=== PATIENT | female | born 1955 | race Caucasian/White ===

== ENCOUNTER 2021-02-07 08:18 | Day surgery (SDC) | payer MEDICARE ==
[~2021-02-07 08:18] MED LIST: Lactated Ringers 1,000 ML IV SCH; Lidocaine 1%/Sod Bicarbonate in NS 8.4% 1 ML Syringe IDERM PRN; Sodium Chloride 0.9% 10 ML Syringe FLUSH PRN
[2021-02-07] MEDS ORDERED: fentaNYL 100 MCG/2 ML SDV ONE (08:38)
[2021-02-07] MEDS ORDERED: Midazolam 1 MG/ML 2 ML SDV ONE (08:38)
[2021-02-07] MEDS ORDERED: Lactated Ringers 0 ML ONE (08:38)
[2021-02-07] MEDS ORDERED: ceFAZolin 1 GM Vial ONE (08:38)
[2021-02-07] MEDS ORDERED: Propofol 200 MG/20 ML SDV ONE ×2 (08:39→11:12)
[2021-02-07] MEDS ORDERED: oxyCODONE 5 MG Tab PO PRN (09:25)
--- NOTE | 2021-02-07 10:02 | PCM.PREANE ---
Preanesthetic Assessment - Anesthesia/Transfusion/Family Hx Anesthesia History: Prior Anesthesia Without Reaction Type of Anesthesia Reaction: Urinary Retention Family History of Anesthesia Reaction: No - Review of Systems General: Other (crd stage 3, creat 1.45, CAHUILLA) Pulmonary: Cough, Other (MARCELLUS, with bipap) Cardiovascular: Other (HTN) Gastrointestinal: Other (gerd on meds, had esophagus stretched in last couple of months and patient states so much better, hiatal hernia) Neurological: Other (hx of stroke 2 years ago, no major residual effects) Other: Reports: Easy Bleeding (on blood thinner), Diabetes, Depression, Anxiety - Physical Assessment NPO Status Date: 02/06/21 NPO Status Time: 20:00 Weight: 107.5 kg ASA Class: 3 Mental Status: Alert & Oriented x3 Dentition: Reports: Edentulous Thyro-Mental Finger Breadths: 3 Mouth Opening Finger Breadths: 3 ROM/Head Extension: Full Lungs: Clear to Auscultation, Normal Respiratory Effort Cardiovascular: Regular Rate, Regular Rhythm - Imaging/EKG Impressions: EKG shows nsr with 1 av block december 2020, stress test negaive for ischemia - Allergies Allergies/Adverse Reactions: Allergies Allergy/AdvReac Type Severity Reaction Status Date / Time acetaminophen [From Tylenol] Allergy abdominal Verified 02/06/21 16:02 pain, vomiting, upset stomach aspirin Allergy abdominal Verified 02/06/21 16:02 pain, vomiting atropine Allergy Hives Verified 02/06/21 16:02 black cohosh Allergy Dizziness Verified 02/06/21 16:02 codeine Allergy Hives Verified 02/06/21 16:02 Sulfa (Sulfonamide Allergy Hives Verified 02/06/21 16:02 Antibiotics) - Blood Blood Available: No Product(s) Available: None - Anesthesia Plan Beta Angie: Atenolol Med Last Dose Date: 02/06/21 Med Last Dose Time: 20:00 - Acknowledgements Anesthesia Type Planned: General Anesthesia Pt an Appropriate Candidate for the Planned Anesthesia: Yes Alternatives and Risks of Anesthesia Discussed w Pt/Guardian: Yes Pt/Guardian Understands and Agrees with Anesthesia Plan: Yes PreAnesthesia Questionnaire HEENT History: Reports: Other (See Below) Other HEENT History: hearing loss, bilateral ceruminosis, has hearing aids, wears glasses Cardiovascular History: Reports: CAD, High Cholesterol Respiratory History: Reports: Sleep Apnea Gastrointestinal History: Reports: Other (See Below) Other Gastrointestinal History: esophageal dysmotility Genitourinary History: Reports: Other (See Below) Other Genitourinary History: urinary retention, CKD III [employer] History: Reports: Other (See Below) Other OB/BYN History: post menopausal Musculoskeletal History: Reports: Other (See Below) Other Musculoskeletal History: pes anserine bursitis, bilateral carpal tunnel syndrome, right knee pain Neurological History: Reports: CVA, Neuropathy, Peripheral, TIA, Other (See Below) Other Neuro History: left sided weakness Psychiatric History: Reports: Anxiety, Depression Endocrine/Metabolic History: Reports: Diabetes, Type II, Obesity/BMI 30+ Hematologic History: Reports: None Immunologic History: Reports: None Oncologic (Cancer) History: Reports: None Dermatologic History: Reports: None - Past Surgical History Head Surgeries/Procedures: Reports: None HEENT Surgical History: Reports: Other (See Below) Other HEENT Surgeries/Procedures: ear surgeries Cardiovascular Surgical History: Reports: None Respiratory Surgical History: Reports: None GI Surgical History: Reports: Cholecystectomy, EGD Female Surgical History: Reports: Hysterectomy, Other (See Below) Other Female Surgeries/Procedures: bladder surgery Endocrine Surgical History: Reports: None Neurological Surgical History: Reports: Lumbar Spine Musculoskeletal Surgical History: Reports: Carpal Tunnel, Other (See Below) Other Musculoskeletal Surgeries/Procedures:: pelvic surgeries, bilateral knee arthroscopies Oncologic Surgical History: Reports: None Dermatological Surgical History: Reports: None - SUBSTANCE USE Tobacco Use Status *Q: Never Tobacco User Recreational Drug Use History: No - HOME MEDS Home Medications: Home Meds Calcium Carb/Vitamin D3/Vit K1 [Calcium + D Soft Chewable Tab] 1 tab PO DAILY 01/25/21 [History] Dulaglutide [Trulicity] 1.5 mg SQ TU 01/25/21 [History] Furosemide [Lasix] 20 mg PO DAILY 01/25/21 [History] Losartan [Cozaar] 50 mg PO DAILY 01/25/21 [History] Multivitamin 1 tab PO DAILY 01/25/21 [History] Pantoprazole Sodium [Protonix] 40 mg PO DAILY 01/25/21 [History] Sertraline [Zoloft] 25 mg PO DAILY 01/25/21 [History] Zolpidem [Ambien] 5 - 10 mg PO BEDTIME PRN 01/25/21 [History] atenoloL [Atenolol] 50 mg PO BEDTIME 01/25/21 [History] metFORMIN HCl [Metformin HCl] 500 mg PO BID 01/25/21 [History] oxyCODONE 5 - 10 mg PO Q4H PRN #30 tab 02/06/21 [Rx] - CURRENT (IN HOUSE) MEDS Current Meds: Current Medications Morphine Sulfate 8 mg/Epinephrine HCl 0.3 mg/Cefuroxime Sodium 750 mg/Ketorolac Tromethamine 30 mg/Sodium Chloride 7.9 ml 0 mg .XX ASDIRECTED PRN PRN Reason: Pain Stop: 02/07/21 16:00 Lactated Ringer's (Ringers, Lactated) 1,000 mls @ 125 mls/hr IV ASDIRECTED SOPHIA Stop: 02/07/21 23:00 Lidocaine/Sodium Bicarbonate (Lidocaine 1%/Sod Bicarbonate In Ns 8.4% 1 Ml Syringe) 0.25 ml IDERM ONETIME PRN PRN Reason: Prior to IV Start Stop: 02/07/21 18:00 Oxycodone HCl (Oxycodone 5 Mg Tab) 10 mg PO ONETIME PRN PRN Reason: Pain Stop: 02/07/21 16:00 Sodium Chloride (Sodium Chloride 0.9% 10 Ml Syringe) 10 ml FLUSH ASDIRECTED PRN PRN Reason: Keep Vein Open Stop: 02/07/21 18:00 Discontinued Medications Cefazolin Sodium (Cefazolin 1 Gm Vial) Confirm Administered Dose 2 gm .ROUTE .STK-MED ONE Stop: 02/07/21 08:39 Fentanyl (Fentanyl 100 Mcg/2 Ml Sdv) Confirm Administered Dose 100 mcg .ROUTE .STK-MED ONE Stop: 02/07/21 08:39 Lactated Ringer's (Ringers, Lactated) Confirm Administered Dose 1,000 mls @ as directed .ROUTE .STK-MED ONE Stop: 02/07/21 08:39 Midazolam HCl (Midazolam 1 Mg/Ml 2 Ml Sdv) Confirm Administered Dose 2 mg .ROUTE .STK-MED ONE Stop: 02/07/21 08:39 Propofol (Propofol 200 Mg/20 Ml Sdv) Confirm Administered Dose 600 mg .ROUTE .STK-MED ONE Stop: 02/07/21 08:40
[2021-02-07] MEDS ORDERED: Lidocaine 1% 4 ML ONE (10:22)
[2021-02-07] MEDS ORDERED: Rocuronium 50 MG/5 ML Vial ONE (10:22)
[2021-02-07] MEDS ORDERED: Ondansetron 4 MG/2 ML SDV ONE (10:23)
[2021-02-07] MEDS ORDERED: fentaNYL 250 MCG/5 ML SDV ONE (10:23)
[2021-02-07] MEDS ORDERED: ePHEDrine 50 MG/ML SDV ONE (10:51)
[2021-02-07] MEDS: Vancomycin 1 GM SDV ONE ×2 (11:22→11:52)
[2021-02-07] MEDS: Morphine 8 MG, EPINEPHrine 0.3 MG, Cefuroxime 750 MG, Ketorolac 30 MG, Sodium Chloride ... PRN ×10 (11:23→11:45)
[2021-02-07] MEDS ORDERED: Sodium Chloride 0.9% 1,000 ML ONE (11:27)
[2021-02-07] MEDS ORDERED: fentaNYL 100 MCG/2 ML SDV IVPUSH PRN (12:23)
[2021-02-07] MEDS ORDERED: Ondansetron 4 MG/2 ML SDV IVPUSH PRN ×2 (12:23→16:14)
--- NOTE | 2021-02-07 12:23 | PCM.POSTAN ---
POST ANESTHESIA ASSESSMENT - MENTAL STATUS Mental Status: Alert - VITAL SIGNS Vital Signs: Last Vital Signs Temp 36.6 C 02/07/21 09:16 Pulse 74 02/07/21 09:16 Resp 18 02/07/21 09:16 BP 147/90 H 02/07/21 09:16 Pulse Ox 97 02/07/21 09:16 - RESPIRATORY Respiratory Status: Respiratory Rate WNL, Airway Patent, O2 Saturation Stable, Supplemental Oxygen - CARDIOVASCULAR CV Status: Pulse Rate WNL, Blood Pressure Stable - GASTROINTESTINAL GI Status: No Symptoms - PAIN Pain Score: 0 - POST OP HYDRATION Hydration Status: Adequate & Stable
[2021-02-07] MEDS ORDERED: EPINEPHrine 1 MG/ML SDV ONE (12:34)
[2021-02-07] MEDS ORDERED: Ropivacaine 0.5% 5 MG/ML 30 ML SDV ONE (12:34)
[2021-02-07] MEDS: HYDROmorphone 0.5 MG/0.5 ML Syringe IVPUSH PRN ×2 (12:40→13:09)
--- NOTE | 2021-02-07 13:10 | PCM.SN.2 ---
- Free Text/Narrative Note: Right selective femoral nerve block at the adductor canal for post-procedure pain control under US guidance requested by Dr. Escobedo. Time Out: 1247 Start: 1247 End: 1258 Chart reviewed. Consent signed. Questions answered. Appropriate monitors applied. Time out performed. Right mid-shaft femur identified with ultrasound, scanning medially of femur, the femoral artery in the adductor canal visualized, and the femoral nerve located laterally to the artery. The skin was prepped lateral to the ultrasound probe with chlorahexadine times two. The 21ga 4 insulated block needle was inserted under direct ultrasound guidance into the adductor canal. 25mL of 0.5% ropivacaine with 1:200,000 epinephrine was injected circumferentially around the nerve with intermittent negative aspiration noted. Patient tolerated the procedure well. Sterile technique noted along with sterile gloves, mask, and sterile probe cover. See picture on progress note and vital signs on nurses notes. Block completed in PACU. Thank you, Francisca Phillip, [employer]STIC[employer] CONTROL INSPECTOR
--- NOTE | 2021-02-07 13:43 | CR ---
Right knee: AP and crosstable lateral views of the right knee were obtained. Comparison: Prior right knee CT study of 01/01/21. Knee prosthesis is noted. Patellar prosthesis is also seen. Soft tissue air is noted. Underlying bony structure shows nothing else acute. Impression: 1. Satisfactory postoperative radiographic appearance of recently placed right knee prostheses. Diagnostic code #2
--- NOTE | 2021-02-07 13:53 | PCM48HPAN ---
Post Anesthesia Note - EVALUATION WITHIN 48HRS OF ANESTHETIC Vital Signs in Normal Range: Yes Patient Participated in Evaluation: Yes Respiratory Function Stable: Yes Airway Patent: Yes Cardiovascular Function Stable: Yes Hydration Status Stable: Yes Pain Control Satisfactory: Yes Nausea and Vomiting Control Satisfactory: Yes Mental Status Recovered: Yes Vital Signs: Last Vital Signs Temp 36.3 C 02/07/21 13:15 Pulse 80 02/07/21 13:15 Resp 10 L 02/07/21 13:15 BP 138/72 02/07/21 13:15 Pulse Ox 96 02/07/21 13:15
[2021-02-07] MEDS ORDERED: Cyclobenzaprine 10 MG Tab PO PRN (16:12)
[2021-02-07] MEDS ORDERED: Naloxone 0.4 MG/ML SDV IVPUSH PRN (16:14)
[2021-02-07] MEDS: oxyCODONE 5 MG Tab PO PRN ×2 (18:09→21:21)
[2021-02-07] MEDS: metFORMIN 500 MG Tab PO SCH (18:23)
[2021-02-07] MEDS: ceFAZolin 2 GM in Premix Bag 1 BAG IV SCH (19:27)
[2021-02-07] MEDS ORDERED: Losartan 50 MG Tab PO SCH (21:00)
[2021-02-07] MEDS ORDERED: Atenolol 50 MG Tab PO SCH (21:00)
[2021-02-07] MEDS: Docusate Sodium 100 MG Cap PO SCH (21:21)
[2021-02-08] MEDS: oxyCODONE 5 MG Tab PO PRN ×2 (02:15→12:41)
[2021-02-08] MEDS: ceFAZolin 2 GM in Premix Bag 1 BAG IV SCH (02:17)
[2021-02-08] MEDS ORDERED: Pantoprazole 40 MG Tab.CR PO SCH (07:00)
[2021-02-08] MEDS ORDERED: Sertraline 25 MG Tab PO SCH (09:00)
[2021-02-08] MEDS ORDERED: Apixaban 5 MG Tab PO SCH (09:00)
[2021-02-08] MEDS ORDERED: Furosemide 20 MG Tab PO SCH ×2 (09:00→09:30)
[2021-02-08] MEDS: metFORMIN 500 MG Tab PO SCH (09:01)
[2021-02-08] MEDS: Docusate Sodium 100 MG Cap PO SCH (09:01)
[2021-02-12] MEDS ORDERED: DULAGLUTIDE 1.5 MG/0.5 ML SUBCUT SCH (09:00)
--- NOTE | 2021-02-18 07:00 | PCM.OPNOTE ---
- General Post-Op/Procedure Note Date of Surgery/Procedure: 02/07/21 Operative Procedure(s): right total knee arthroplasty with mery mohan robot[employer] Pre Op Diagnosis: right knee osteoarthrosis Post-Op Diagnosis: Same Anesthesia Technique: Local, MAC, Spinal Primary Surgeon: Joseph Escobedo Anesthesia Provider: Francisca Phillip [employer] Senior Specialist: Brinda Sosa [employer] Senior Specialist: Patti Amin EBL in mLs: 250 Complications: None Condition: Good Free Text/Narrative:: / 9mm 35x10
--- NOTE | 2021-02-18 08:05 | OR ---
DATE OF OPERATION: 02/07/2021 SURGEON: Joseph Escobedo MD OPERATION PERFORMED: Right total knee arthroplasty with [employer] robot[employer]. PREOPERATIVE DIAGNOSIS: Right knee osteoarthrosis. POSTOPERATIVE DIAGNOSIS: Right knee osteoarthrosis. ANESTHESIA: Local MAC with spinal. ANESTHESIA PROVIDER: Francisca Phillip. ASSISTANTS: Brinda Sosa PA-C and Patti Amin RN. ESTIMATED BLOOD LOSS: 250 mL. COMPLICATIONS: None. CONDITION: Stable. IMPLANTS: 1. Racine size 4 press-fit CR femur. 2. Kristy size 4 press-fit tibial baseplate. 3. Kristy size 4, 9 mm CS polyethylene insert. 4. Racine size 35 x 10 mm asymmetric press-fit patella. DESCRIPTION OF PROCEDURE: The patient was identified in the preoperative holding area. Proper site was marked, identified by surgeon. The patient was taken back to the operating theater where after adequate anesthesia, the patient's right lower extremity had a nonsterile tourniquet applied and was sterilely prepped and draped in the usual sterile fashion. OR time-out was performed. The patient received 2 g of IV Ancef. At this time, right lower extremity was exsanguinated. Tourniquet was insufflated to 250 mmHg. Standard anterior incision was made. Medial parapatellar arthrotomy was created. Deep fibers of the MCL were raised, and anterior fat pad was resected. Attention was turned to the patella. Patella measured 24 and resected to 14 for a 35 x 10 mm patella. Drill holes were then drilled. Two 4.0 Schanz pins were then placed transitionally on the femur for the [employer] robotic array. Two more were placed in the tibia 3 fingerbreadths below the tibial tubercle, and checkpoints were placed on the femur and the tibia. Hip center rotation was obtained. Medial and lateral malleoli were marked as well as the checkpoints. 40 points were then obtained off both the femur and the tibia for the Kristy Umberto robotic plan. The patient's knee was brought into full extension. Varus and valgus stresses were applied as well as in 90 degrees of flexion. At this time, Kristy Umberto robotic plan for 18 mm flexion and extension gaps was undertaken. A straight saw blade was brought in. The tibial cut, anterior femoral cut, anterior chamfer cut, and posterior femoral cut were completed. Bony fragments were removed. Saw blade was switched. Distal femoral cut and posterior chamfer cut were then completed. All bony fragments were removed. Medial and lateral meniscus were resected. Any posterior osteophytes were removed. A size 4 trial baseplate was placed. Size 4 trial femur was placed. A 9 mm trial polyethylene liner was placed. The patient had full extension and flexion. No signs of liftoff, loosening, and no varus-valgus instability. Femoral drill holes were drilled. Tibia was stamped and drilled in proper rotation. All trial implants were removed. At this time, size 4 tibia was impacted into place, a size 4 femur was impacted into place, and 9 mm CS polyethylene insert was impacted into place. The patient's knee was brought into full extension. A 35 x 10 mm press-fit patella was press-fit into place. Tourniquet was deflated. Bleeders were cauterized. 1 L pulse lavage irrigation with Ancef was irrigated through the wound along with 400 mL of IrriSept irrigation. Periarticular injection was completed. Topical tranexamic acid and vancomycin powder were applied. A #2 barbed suture was used for closure of the medial parapatellar arthrotomy. 2-0 Vicryl and Stratafix were used for subcutaneous closure and Prineo was used for skin closure. Before this all check points and pins were removed. The patient had a sterile soft dressing applied and was sent to the PACU in stable condition. JOSÉ MIGUEL /[id number]
== END 2021-02-08 15:30 | disposition home or self-care (01) ==
LOC: JD.SDS 08:18 → JD.OB 08:19 → JD.SDS 02-08 15:30
PROVIDERS: ATTEND Orthopaedic Surgery
DX: M17.11 Unilateral primary osteoarthritis, right knee (principal); G47.33 Obstructive sleep apnea (adult) (pediatric); I25.10 Atherosclerotic heart disease of native coronary artery without angina pectoris; E66.9 Obesity, unspecified; E11.42 Type 2 diabetes mellitus with diabetic polyneuropathy; E78.5 Hyperlipidemia, unspecified; I10 Essential (primary) hypertension; K21.9 Gastro-esophageal reflux disease without esophagitis; Z98.890 Other specified postprocedural states; Z68.41 Body mass index [BMI] 40.0-44.9, adult; Z86.73 Personal history of transient ischemic attack (TIA), and cerebral infarction without residual deficits; Z88.8 Allergy status to other drugs, medicaments and biological substances; Z88.2 Allergy status to sulfonamides; Z88.5 Allergy status to narcotic agent; Z79.899 Other long term (current) drug therapy; Z79.84 Long term (current) use of oral hypoglycemic drugs; G89.18 Other acute postprocedural pain
CPT/HCPCS: 27447; 36415; 51701; 73560; 80053; 82947; 85027; 94760; 94761; 97110; 97116; 97161; A9270; C1713; C1776; J0171; J0690; J0697; J1170; J1885; J2270; J2405; J2704; J2710; J2795; J3010; J3370; J7030; J7120; 01402; 64450; 76942; J2250

== ENCOUNTER 2021-08-30 12:40 | Emergency (ER) | payer MEDICARE ==
[2021-08-30] MEDS ORDERED: Sodium Chloride 0.9% 10 ML Syringe FLUSH PRN (12:55)
[2021-08-30] MEDS ORDERED: Sodium Chloride 0.9% 500 ML IV STA (13:31)
[2021-08-30] MEDS ORDERED: Sodium Chloride 0.9% 1,000 ML IV STA (13:31)
[2021-08-30] MEDS ORDERED: Ondansetron 4 MG/2 ML SDV IVPUSH ONE (13:31)
== END 2021-08-30 16:12 | disposition home or self-care (01) ==
LOC: JD.ED 12:40
DX: R42 Dizziness and giddiness (principal); R11.2 Nausea with vomiting, unspecified; E78.00 Pure hypercholesterolemia, unspecified; I25.10 Atherosclerotic heart disease of native coronary artery without angina pectoris; E11.22 Type 2 diabetes mellitus with diabetic chronic kidney disease; E11.42 Type 2 diabetes mellitus with diabetic polyneuropathy; N18.30 Chronic kidney disease, stage 3 unspecified; E66.9 Obesity, unspecified; Z68.30 Body mass index [BMI] 30.0-30.9, adult; Z88.2 Allergy status to sulfonamides; Z88.5 Allergy status to narcotic agent; Z88.8 Allergy status to other drugs, medicaments and biological substances; Z79.02 Long term (current) use of antithrombotics/antiplatelets; Z79.899 Other long term (current) drug therapy; Z79.84 Long term (current) use of oral hypoglycemic drugs; Z86.73 Personal history of transient ischemic attack (TIA), and cerebral infarction without residual deficits
CPT/HCPCS: 36415; 80053; 81001; 82947; 83690; 84484; 85025; 86140; 96374; 99283; J2405; J3490; J7030